=== PATIENT | male | born 1970 | race African-American/Black ===

== ENCOUNTER 2019-04-26 14:39 | Emergency (ER) | payer BC, SELFPAY ==
[2019-04-26 14:37] VITALS: BP 153/96; PULSE 72; RESP 16; TEMP 36.8; O2SAT 95
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
[2019-04-26 15:05] LABS: Abs Immature Grans 0.02 k/cumm (0.0-0.09); Absolute Basophil Count 0.02 k/cumm (0.0-0.2); Absolute Eosinophil Count 0.01 k/cumm (0.0-0.7); Absolute Lymphocyte Count 1.92 k/cumm (1.2-3.4); Absolute Neutrophil Count 4.11 k/cumm (1.2-6.7); Basophils % 0.3; Eosinophils % 0.2; HCT 50.1 % (40.0-50.0); HGB 16.6 g/dL (13.5-17.5); Immature Grans % 0.3; Lymphocytes % 29.6; Mean Corp. HGB Concentration 33.1 g/dL (32.0-36.0); Mean Corpuscular Hemoglobin 29.7 pg (27.0-33.0); Mean Corpuscular Volume 89.6 fL (80-95); Mean Platelet Volume 11.1 fL (8.0-11.0); Monocytes % 6.2; Neutrophils % 63.4; Platelet Count 218 x1000/uL (130-400); RBC 5.59 m/cumm (4.50-6.00); RBC Distribution Width 12.1 % (11.8-14.1); White Blood Cell Count 6.48 k/cumm (4.4-10.8)
[2019-04-26] MEDS: Omnipaque 350 MG/ML 100 ML BTL IJ (15:08)
[2019-04-26] MEDS: Normal Saline Flush 10 ML SYR IVP (15:11)
[2019-04-26 15:23] LABS: ALT 36 U/L (16-63); AST 26 U/L (15-37); Albumin 3.9 g/dL (3.4-5.0); Alkaline Phosphatase 67 U/L (46-116); Anion Gap 8.2 mmol/L (3-11); BUN 19 mg/dL (7-18); Bilirubin, Total 1.1 mg/dL (0.2-1.0); CO2 29.8 mmol/L (21.0-32.0); CREATININE 1.04 mg/dL (0.70-1.30); Calcium 8.7 mg/dL (8.5-10.1); Chloride 104 mmol/L (98-107); Glucose 114 mg/dL (70-100); Potassium 4.2 mmol/L (3.5-5.1); Sodium 142 mmol/L (136-145)
[2019-04-26 15:24] LABS: Troponin I < 0.05 ng/mL (0.00-0.06)
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
[2019-04-26] MEDS: Ketorolac 15 MG/ML VIAL IVP (16:12)
[2019-04-26] MEDS: Acetaminophen 325 MG TAB 650 MG PO (16:12)
--- NOTE | 2019-04-26 16:16 | NUR.NOTE ---
neck color removed by pt medicated as per mdo for pain pt [id number] ambulatory steady gait to bathroom Nursing Note:
[2019-04-26] MEDS: Ibuprofen 600 MG TAB PO (20:16)
[2019-04-26] MEDS: Lidocaine 5% Patch 1 PATCH TP (20:16)
[2019-04-26 20:17] VITALS: BP 154/93; PULSE 52; RESP 16; O2SAT 99
== END 2019-04-26 20:15 | disposition home or self-care (01) ==
PROVIDERS: Emergency Provider Student in an Organized Health Care Education/Training Program; PCP Internal Medicine
DX: M54.2 Cervicalgia (principal); S27.321A Contusion of lung, unilateral, initial encounter; S20.212A Contusion of left front wall of thorax, initial encounter; S06.9X9A Unspecified intracranial injury with loss of consciousness of unspecified duration, initial encounter; M25.562 Pain in left knee; V43.52XA Car driver injured in collision with other type car in traffic accident, initial encounter; R40.0 Somnolence; R93.7 Abnormal findings on diagnostic imaging of other parts of musculoskeletal system; R93.422 Abnormal radiologic findings on diagnostic imaging of left kidney
CPT/HCPCS: 36415; 74177; 80053; 86850; 86900; 86901; 96374; 99285; 70450; 71260; 72125; 73564; 84484; 85025; 99284; J1885; J3490